=== PATIENT | male | born 1965 | race Caucasian/White ===

== ENCOUNTER 2016-08-16 14:50 | Emergency (ER) | payer BC, OTHER ==
[2016-08-16] MEDS ORDERED: diphenhydrAMINE HCl 25 MG CAP ONE (15:48)
[2016-08-16] MEDS ORDERED: Ondansetron ODT 4 MG TAB ONE (15:48)
[2016-08-16] MEDS ORDERED: Morphine Sulfate 2 MG/ML SYRINGE ONE (16:55)
--- NOTE | 2016-08-16 18:35 | RAD ---
RIGHT SHOULDER THREE VIEWS 08/16/16 HISTORY: Posttraumatic pain. FINDINGS: Chronic deformity of the right shoulder is noted with osseous remodeling of the humeral head. 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 No acute, displaced fra cture seen. IMPRESSION: Chronic deformity of the right shoulder. No discrete evidence of an acute fracture. POS: [facility]
== END 2016-08-16 17:13 | disposition home or self-care (01) ==
LOC: MADERS 14:50
DX: S46.911A Strain of unspecified muscle, fascia and tendon at shoulder and upper arm level, right arm, initial encounter (principal); I25.10 Atherosclerotic heart disease of native coronary artery without angina pectoris; E11.9 Type 2 diabetes mellitus without complications; E78.5 Hyperlipidemia, unspecified; E78.00 Pure hypercholesterolemia, unspecified; I10 Essential (primary) hypertension; F32.9 Major depressive disorder, single episode, unspecified; Z86.718 Personal history of other venous thrombosis and embolism; Z79.01 Long term (current) use of anticoagulants; Z79.899 Other long term (current) drug therapy; X58.XXXA Exposure to other specified factors, initial encounter
CPT/HCPCS: 96372; J2270; Q0162

== ENCOUNTER 2016-10-02 14:52 | Outpatient (CLI) | payer BC, OTHER ==
[2016-10-02 16:03] LABS: Anion Gap 14 mmol/L (10-20); BUN (Urea Nitrogen) 18 mg/dL (8.9-20.6); Calc. Creatinine Clearance 0 mL/min (70-130); Calcium 9.1 mg/dL (7.8-10.44); Carbon Dioxide 22 mmol/L (22-29); Chloride 107 mmol/L (98-107); Estimated GFR-MDRD 55; Glucose 104 mg/dL (70-105); Potassium 4.8 mmol/L (3.5-5.1); Sodium 138 mmol/L (136-145)
[2016-10-03 17:27] LABS: Creatinine, Urine 84.52 mg/dL (63-166)
== END 2016-10-02 14:53 | disposition home or self-care (01) ==
LOC: MADLAB 14:52
PROVIDERS: ATTEND Internal Medicine Nephrology
DX: N18.3 Chronic kidney disease, stage 3 (moderate) (principal); D50.9 Iron deficiency anemia, unspecified; R80.9 Proteinuria, unspecified; R53.82 Chronic fatigue, unspecified
CPT/HCPCS: 36415; 80048; 82570; 83970; 84156

== ENCOUNTER 2016-12-10 14:51 | Emergency (ER) | payer BC ==
[2016-12-10] MEDS ORDERED: Ondansetron ODT 4 MG TAB ONE (15:26)
--- NOTE | 2016-12-10 16:42 | RAD ---
RIGHT HIP 3 VIEWS: Date: 12/10/16 INDICATION: Post-traumatic pain. FINDINGS: Reference made to 04/14/13. There is no fracture or dislocation. No significant arthropathy. IMPRESSION: No acute osseous abnormality. POS: [facility]
--- NOTE | 2016-12-10 16:50 | CT ---
CT ABDOMEN AND PELVIS WITHOUT IV CONTRAST: Date: 12/10/16 HISTORY: Abdominal pain after being bucked off a horse two days ago. FINDINGS: Lack of intravenous contrast limits sensitivity for evaluation of the parenchymal organs. Patient's arms are also down by the side which results in artifact through the upper abdomen. There is a large increased density mass-like structure seen involving the posterior aspect inferior pole left kidney measuring 5.5 cm x 5.1 cm. There is also a rounded increased density lesion inferio r pole right kidney measuring 2.4 cm. While findings could be related to Bosniak Type II renal cysti c lesions, the lesion involving the left kidney is much larger than expected and renal mass is a pos sibility. Further evaluation with postcontrast CT abdomen is recommended. Visualized lung bases are clear without evidence of pleural effusion or pneumothorax. There is a rem ote lower posterior left rib fracture present. No acute fracture is seen. Degenerative changes are n oted of the lower lumbar spine. Vascular calcifications seen in coronary arteries, as well as involving the abdominal aorta and yoni c arteries. The liver, spleen, pancreas, and bilateral adrenal glands demonstrate a grossly normal nonenhanced C T appearance. Urinary bladder is decompressed. There is colonic diverticulosis. No free fluid or free intraperitoneal gas is seen in the abdomen or pelvis. There is a large increased density collection seen within the right gluteal region which measures 15 .4 cm x 4.7 cm in greatest axial dimensions. There is prominent subcutaneous edema also seen in the right gluteal subcutaneous soft tissues. There is no right hip fracture or dislocation appreciated. No obvious joint effusion is identified. IMPRESSION: 1. Increased density mass inferior pole left kidney with smaller increased density structure inferi or pole right kidney. CT scan of the abdomen with IV contrast is recommended for further evaluation. 2. Hematoma right gluteal subcutaneous soft tissues with adjacent prominent subcutaneous edema and subcutaneous fat right gluteal region. No underlying fracture is seen. 3. Colonic diverticulosis. 4. Limited evaluation of the parenchymal organs due to lack of intravenous contrast. CODE T. POS: [facility]
[2016-12-10] MEDS ORDERED: HYDROcodone/Acetaminophen 10/325 mg Tablet ONE (16:58)
== END 2016-12-10 17:25 | disposition home or self-care (01) ==
LOC: MADERS 14:51
DX: S70.01XA Contusion of right hip, initial encounter (principal); S30.0XXA Contusion of lower back and pelvis, initial encounter; I25.10 Atherosclerotic heart disease of native coronary artery without angina pectoris; E11.9 Type 2 diabetes mellitus without complications; I10 Essential (primary) hypertension; E78.5 Hyperlipidemia, unspecified; F32.9 Major depressive disorder, single episode, unspecified; Z86.718 Personal history of other venous thrombosis and embolism; Z79.84 Long term (current) use of oral hypoglycemic drugs; Z79.891 Long term (current) use of opiate analgesic; Z79.02 Long term (current) use of antithrombotics/antiplatelets; Z79.899 Other long term (current) drug therapy; V80.010A Animal-rider injured by fall from or being thrown from horse in noncollision accident, initial encounter; Y93.52 Activity, horseback riding
CPT/HCPCS: 74176; 96372; J2270; Q0162

== ENCOUNTER 2017-08-04 14:27 | Outpatient (CLI) | payer OTHER | END 2017-08-04 14:28 | disposition home or self-care (01) | LOC: MADLAB 14:27 | PROVIDERS: ATTEND Internal Medicine Nephrology | DX: N18.3 Chronic kidney disease, stage 3 (moderate) (principal) | CPT/HCPCS: 36415; 82565; 84520 ==

== ENCOUNTER 2017-09-02 22:36 | Emergency (ER) | payer OTHER ==
[2017-09-02] MEDS ORDERED: Sterile Water 10 ML ONE (23:12)
[2017-09-02] MEDS ORDERED: ALPRAZolam 0.25 MG TAB ONE (23:18)
== END 2017-09-02 23:30 | disposition home or self-care (01) ==
LOC: MADERS 22:36
DX: F41.1 Generalized anxiety disorder (principal); R33.9 Retention of urine, unspecified; I25.10 Atherosclerotic heart disease of native coronary artery without angina pectoris; E11.9 Type 2 diabetes mellitus without complications; E78.00 Pure hypercholesterolemia, unspecified; I10 Essential (primary) hypertension; Z86.718 Personal history of other venous thrombosis and embolism; Z79.899 Other long term (current) drug therapy
CPT/HCPCS: 51703; A4216

== ENCOUNTER 2018-02-04 14:20 | Outpatient (CLI) | payer OTHER ==
[2018-02-04 14:43] LABS: Bilirubin Negative (Negative); Blood, Urine Negative (Negative); Clarity Clear (Clear); Glucose, Urine (Dipstick) Negative (Negative); Leukocyte Negative (Negative); Nitrite Negative (Negative); Protein, Urine (Dipstick) > or equal to 300 mg/dL (Neg-Trace); Specific Gravity, Urine 1.025 (1.005-1.030); Urobilinogen 0.2 mg/dL (0.2-1.0); pH, Urine 6.5 (5.0-9.0)
[2018-02-04 14:45] LABS: #Basophils 0.1 thou/uL (0.0-0.2); #Eosinphils 0.1 thou/uL (0.0-0.7); #Lymphocytes 1.2 thou/uL (1.20-3.40); #Monocytes 0.5 thou/uL (0.11-0.59); %Basophils 1.6 % (0.0-1.0); %Eosinophils 1.7 % (0.0-10.0); %Lymphocytes 17.1 % (21.0-51.0); %Monocytes 7.6 % (0.0-10.0); Hemoglobin 14.3 g/dL (14.0-18.0); Mean Corpuscular HGB CONC 33.7 g/dL (32.0-36.0); Mean Corpuscular Hemoglobin 31.1 pg (27.0-31.0); Mean Corpuscular Volume 92.3 fL (78.0-98.0); Mean Platelet Volume 6.7 fL (7.4-10.4); Platelet Count 198 thou/uL (130-400); White Blood Cell (WBC) Count 6.9 thou/uL (4.8-10.8)
[2018-02-04 14:53] LABS: INR-International Normal Ratio 0.9; PTT 27.8 SEC (22.9-36.1); Prothrombin Time 12.5 SEC (12.0-14.7)
[2018-02-04 14:59] LABS: ALT (SGPT) 28 U/L (8-55); AST (SGOT) 20 U/L (5-34); Alkaline Phosphatase 55 U/L (40-150); Anion Gap 12 mmol/L (10-20); BUN (Urea Nitrogen) 18 mg/dL (8.4-25.7); Bilirubin, Total 0.5 mg/dL (0.2-1.2); Calc. Creatinine Clearance 0 mL/min (70-130); Calcium 9.1 mg/dL (7.8-10.44); Carbon Dioxide 22 mmol/L (22-29); Chloride 108 mmol/L (98-107); Estimated GFR-MDRD 48; Globulin 3.2 g/dL (2.4-3.5); Glucose 135 mg/dL (70-105); Potassium 4.3 mmol/L (3.5-5.1); Protein, Total 7.2 g/dL (6.0-8.3); Sodium 138 mmol/L (136-145)
[2018-02-04 15:17] LABS: Bacteria/HPF Rare-Few HPF (None Seen); RBC/HPF 0-3 HPF (0-3); Squamous Epithelial 0-3 HPF (0-3); WBC/HPF 0-3 HPF (0-3)
== END 2018-02-04 14:21 | disposition home or self-care (01) ==
LOC: MADLAB 14:20
PROVIDERS: ATTEND Urology
DX: N28.89 Other specified disorders of kidney and ureter (principal)
CPT/HCPCS: 36415; 80053; 81001; 85025; 85610; 85730; 87086

== ENCOUNTER 2018-03-17 16:22 | Emergency (ER) | payer OTHER ==
[2018-03-17 17:11] LABS: #Basophils 0.1 thou/uL (0.0-0.2); #Eosinphils 0.1 thou/uL (0.0-0.7); #Lymphocytes 1.2 thou/uL (1.20-3.40); #Monocytes 0.7 thou/uL (0.11-0.59); #Neutrophils 6.5 thou/uL (1.40-6.50); %Basophils 1.6 % (0.0-1.0); %Eosinophils 0.6 % (0.0-10.0); %Lymphocytes 13.9 % (21.0-51.0); %Monocytes 8.2 % (0.0-10.0); %Neutrophils 75.6 % (42.0-75.0); Hemoglobin 11.9 g/dL (14.0-18.0); Mean Corpuscular HGB CONC 32.9 g/dL (32.0-36.0); Mean Corpuscular Volume 91.2 fL (78.0-98.0); Platelet Count 343 thou/uL (130-400); RBC Distribution Width 12.8 % (11.5-14.5); Red Blood Cell (RBC) Count 3.98 mill/uL (4.70-6.10); White Blood Cell (WBC) Count 8.6 thou/uL (4.8-10.8)
[2018-03-17 17:26] LABS: ALT (SGPT) 15 U/L (8-55); AST (SGOT) 14 U/L (5-34); Albumin 3.9 g/dL (3.5-5.0); Alkaline Phosphatase 77 U/L (40-150); Anion Gap 16 mmol/L (10-20); BUN (Urea Nitrogen) 27 mg/dL (8.4-25.7); Bilirubin, Total 0.5 mg/dL (0.2-1.2); Calc. Creatinine Clearance 0 mL/min (70-130); Calcium 9.1 mg/dL (7.8-10.44); Carbon Dioxide 19 mmol/L (22-29); Chloride 106 mmol/L (98-107); Estimated GFR-MDRD 38; Globulin 2.7 g/dL (2.4-3.5); Glucose 195 mg/dL (70-105); Protein, Total 6.6 g/dL (6.0-8.3); Sodium 137 mmol/L (136-145)
[2018-03-17 17:27] LABS: CKMB 0.6 ng/mL (0-6.6); Troponin I Less than 0.010 ng/mL (< 0.028)
[2018-03-17] MEDS ORDERED: Sodium Chloride 0.9% 1,000 ML BAG ONE (23:34)
== END 2018-03-17 18:27 | disposition home or self-care (01) ==
LOC: MADERS 16:22
DX: R53.1 Weakness (principal); I25.10 Atherosclerotic heart disease of native coronary artery without angina pectoris; E11.9 Type 2 diabetes mellitus without complications; E78.5 Hyperlipidemia, unspecified; I10 Essential (primary) hypertension; Z86.718 Personal history of other venous thrombosis and embolism; F41.9 Anxiety disorder, unspecified; F32.9 Major depressive disorder, single episode, unspecified; Z79.899 Other long term (current) drug therapy
CPT/HCPCS: 80053; 82553; 84484; 85025; 93005; 94760; 96360; J7050

== ENCOUNTER 2019-02-08 21:11 | Emergency (ER) | payer OTHER ==
--- NOTE | 2019-02-08 23:00 | RAD ---
Radiograph left hip 2 views: HISTORY: 54-year-old male with left hip pain FINDINGS: Femoral head contour is maintained. No subcapital osteophytes. Hip joint space is maintained. No frac ture or dislocation. IMPRESSION: Negative
== END 2019-02-08 22:56 | disposition home or self-care (01) ==
LOC: MADERS 21:11
DX: M70.62 Trochanteric bursitis, left hip (principal); I25.10 Atherosclerotic heart disease of native coronary artery without angina pectoris; Z95.5 Presence of coronary angioplasty implant and graft; E11.9 Type 2 diabetes mellitus without complications; E78.5 Hyperlipidemia, unspecified; E78.00 Pure hypercholesterolemia, unspecified; I10 Essential (primary) hypertension; Z85.528 Personal history of other malignant neoplasm of kidney; Z86.718 Personal history of other venous thrombosis and embolism; F41.9 Anxiety disorder, unspecified; F32.9 Major depressive disorder, single episode, unspecified; Z79.899 Other long term (current) drug therapy; Z79.01 Long term (current) use of anticoagulants

== ENCOUNTER 2019-11-18 14:53 | Outpatient (CLI) | payer OTHER ==
--- NOTE | 2019-11-18 15:10 | RAD ---
Exam:Left shoulder 3 views HISTORY: Chronic pain. Patient fell off a horse. COMPARISON: None FINDINGS: Glenohumeral joint space is preserved. No fracture or dislocation. Visualized left ribs and lung parenchyma do not demonstrate posttraumatic change. IMPRESSION: No fracture or dislocation.
== END 2019-11-18 14:54 | disposition home or self-care (01) ==
LOC: MADRAD 14:53
PROVIDERS: ATTEND Orthopaedic Surgery
DX: M25.512 Pain in left shoulder (principal)

== ENCOUNTER 2020-03-30 13:50 | Outpatient (CLI) | payer OTHER ==
[2020-03-30 14:08] LABS: #Basophils 0.1 thou/uL (0.0-0.2); #Eosinphils 0.1 thou/uL (0.0-0.7); #Neutrophils 8.2 thou/uL (1.40-6.50); %Basophils 1.1 % (0.0-1.0); %Eosinophils 0.9 % (0.0-10.0); %Monocytes 9.2 % (0.0-10.0); %Neutrophils 78.7 % (42.0-75.0); Hemoglobin 13.2 g/dL (14.0-18.0); Mean Corpuscular Volume 93.8 fL (78.0-98.0); Mean Platelet Volume 5.7 fL (7.4-10.4); Platelet Count 210 thou/uL (130-400); RBC Distribution Width 12.6 % (11.5-14.5); White Blood Cell (WBC) Count 10.4 thou/uL (4.8-10.8)
[2020-03-30 14:22] LABS: ALT (SGPT) 29 U/L (8-55); AST (SGOT) 27 U/L (5-34); Albumin 3.9 g/dL (3.5-5.0); Alkaline Phosphatase 63 U/L (40-110); Anion Gap 15 mmol/L (10-20); BUN (Urea Nitrogen) 26 mg/dL (8.4-25.7); Bilirubin, Total 0.4 mg/dL (0.2-1.2); Calc. Creatinine Clearance 0 mL/min (70-130); Calcium 8.9 mg/dL (7.8-10.44); Carbon Dioxide 21 mmol/L (22-29); Cardiac Risk 3.2 (Less than 4.5); Chloride 104 mmol/L (98-107); Cholesterol 130 mg/dl (< 200 Desired); Estimated GFR-MDRD 45; Glucose 112 mg/dL (70-105); HDL Cholesterol 41 mg/dL (>60 Neg Risk); LDL Cholesterol, Calculated 64 mg/dL; Potassium 4.1 mmol/L (3.5-5.1); Protein, Total 6.9 g/dL (6.0-8.3); Sodium 136 mmol/L (136-145); Triglycerides 126 mg/dL (Less than 150)
[2020-03-30 21:44] LABS: Hemoglobin A1c 5.7 % (4.0-6.0)
== END 2020-03-30 13:51 | disposition home or self-care (01) ==
LOC: MADLAB 13:50
PROVIDERS: ATTEND Physician Assistant Medical
DX: Z51.81 Encounter for therapeutic drug level monitoring (principal); I12.9 Hypertensive chronic kidney disease with stage 1 through stage 4 chronic kidney disease, or unspecified chronic kidney disease; E11.22 Type 2 diabetes mellitus with diabetic chronic kidney disease; N18.30 Chronic kidney disease, stage 3 unspecified; E11.21 Type 2 diabetes mellitus with diabetic nephropathy; E78.2 Mixed hyperlipidemia; Z79.899 Other long term (current) drug therapy
CPT/HCPCS: 36415; 80053; 80061; 83036; 85025

== ENCOUNTER 2020-09-04 18:18 | Emergency (ER) | payer OTHER ==
[2020-09-04] MEDS ORDERED: Morphine 4 MG/ML VIAL ONE (19:51)
[2020-09-04] MEDS ORDERED: Morphine 2 MG/ML VIAL ONE (19:51)
[2020-09-04 20:08] LABS: ALT (SGPT) 29 U/L (8-55); AST (SGOT) 26 U/L (5-34); Albumin 3.5 g/dL (3.5-5.0); Alkaline Phosphatase 58 U/L (40-110); Anion Gap 16 mmol/L (10-20); BUN (Urea Nitrogen) 25 mg/dL (8.4-25.7); Bilirubin, Total 0.3 mg/dL (0.2-1.2); Calc. Creatinine Clearance 0 mL/min (70-130); Calcium 8.5 mg/dL (7.8-10.44); Carbon Dioxide 23 mmol/L (22-29); Chloride 102 mmol/L (98-107); Globulin 3.2 g/dL (2.4-3.5); Glucose 86 mg/dL (70-105); Protein, Total 6.7 g/dL (6.0-8.3); Sodium 137 mmol/L (136-145)
[2020-09-04 20:30] LABS: Band 4 % (5-11); Hemoglobin 14.2 g/dL (14.0-18.0); Lymphocytes 20 % (21-51); MDiff Complete? YES; Mean Corpuscular HGB CONC 31.2 g/dL (32.0-36.0); Mean Corpuscular Hemoglobin 29.1 pg (27.0-31.0); Mean Corpuscular Volume 93.5 fL (78.0-98.0); Mean Platelet Volume 7.9 fL (7.4-10.4); Monocytes 8 % (0-10); Neutrophil 68 % (42-75); Platelet Count 180 thou/uL (130-400); Platelet Morphology Comment Appears Adequate; RBC Distribution Width 14.5 % (11.5-14.5); RBC Morphology Normal; Red Blood Cell (RBC) Count 4.87 mill/uL (4.70-6.10); White Blood Cell (WBC) Count 5.9 thou/uL (4.8-10.8)
[2020-09-05 19:11] LABS: SARS-CoV-2 PCR by NAA DETECTED (NotDetected)
== END 2020-09-04 20:39 | disposition home or self-care (01) ==
LOC: MADERS 18:18
DX: U07.1 COVID-19 (principal); I25.10 Atherosclerotic heart disease of native coronary artery without angina pectoris; E11.9 Type 2 diabetes mellitus without complications; E78.5 Hyperlipidemia, unspecified; E78.00 Pure hypercholesterolemia, unspecified; I10 Essential (primary) hypertension; Z85.528 Personal history of other malignant neoplasm of kidney; Z86.73 Personal history of transient ischemic attack (TIA), and cerebral infarction without residual deficits; Z79.899 Other long term (current) drug therapy; Z79.01 Long term (current) use of anticoagulants
CPT/HCPCS: 36415; 71045; 80053; 83605; 83880; 84484; 85025; 87635; 96372; J2270; U0003; U0005

== ENCOUNTER 2021-08-31 15:19 | Emergency (ER) | payer SELFPAY ==
[2021-08-31 16:17] LABS: #Basophils 0.1 thou/uL (0.0-0.2); #Monocytes 0.6 thou/uL (0.11-0.59); %Basophils 0.9 % (0.0-1.0); %Eosinophils 0.6 % (0.0-10.0); %Lymphocytes 12.7 % (21.0-51.0); %Monocytes 7.9 % (0.0-10.0); Hemoglobin 14.5 g/dL (14.0-18.0); Mean Corpuscular HGB CONC 32.4 g/dL (32.0-36.0); Mean Corpuscular Hemoglobin 30.5 pg (27.0-31.0); Mean Corpuscular Volume 94.1 fL (78.0-98.0); Mean Platelet Volume 6.8 fL (7.4-10.4); Platelet Count 229 thou/uL (130-400); RBC Distribution Width 13.9 % (11.5-14.5); Red Blood Cell (RBC) Count 4.75 mill/uL (4.70-6.10); White Blood Cell (WBC) Count 7.7 thou/uL (4.8-10.8)
[2021-08-31] MEDS ORDERED: Sodium Chloride 0.9% 1,000 ML ONE (16:18)
[2021-08-31] MEDS ORDERED: Acetaminophen 500 MG TAB ONE (17:19)
[2021-08-31 17:20] LABS: Bilirubin Negative (Negative); Blood, Urine Negative (Negative); Clarity Clear (Clear); Glucose, Urine (Dipstick) Negative (Negative); Ketone, Urine Negative (Negative); Leukocyte Negative (Negative); Nitrite Negative (Negative); Protein, Urine (Dipstick) 100 mg/dL (Neg-Trace); Urobilinogen 0.2 mg/dL (Less than 2); pH, Urine 6.5 (5.0-9.0)
[2021-08-31 17:28] LABS: Bacteria/HPF Rare-Few HPF (None Seen); RBC/HPF None Seen HPF (0-3); Renal Epithelial None Seen HPF (None Seen); Squamous Epithelial 0-3 HPF (0-3); WBC/HPF None Seen HPF (0-3)
[2021-08-31] MEDS ORDERED: ALPRAZolam 0.5 MG TAB ONE (18:08)
== END 2021-08-31 18:30 | disposition home or self-care (01) ==
LOC: MADERS 15:19
DX: E86.9 Volume depletion, unspecified (principal); R39.11 Hesitancy of micturition; I10 Essential (primary) hypertension; I25.10 Atherosclerotic heart disease of native coronary artery without angina pectoris; E11.9 Type 2 diabetes mellitus without complications; E78.5 Hyperlipidemia, unspecified; E78.00 Pure hypercholesterolemia, unspecified; Z86.718 Personal history of other venous thrombosis and embolism; Z85.528 Personal history of other malignant neoplasm of kidney; Z95.5 Presence of coronary angioplasty implant and graft; Z79.899 Other long term (current) drug therapy
CPT/HCPCS: 51702; 81003; 81015; 82550; 85025; J7050

== ENCOUNTER 2024-05-04 23:09 | Emergency (ER) | payer BC ==
[2024-05-04] MEDS ORDERED: hydrOXYzine 25 MG TAB ONE (23:32)
[2024-05-04] MEDS ORDERED: BuPROPion XL 150 MG ER.TAB PO SCH (23:45)
== END 2024-05-04 23:54 | disposition home or self-care (01) ==
LOC: MADERS 23:09
DX: Z76.0 Encounter for issue of repeat prescription (principal); E11.9 Type 2 diabetes mellitus without complications; I10 Essential (primary) hypertension; E78.00 Pure hypercholesterolemia, unspecified; I25.10 Atherosclerotic heart disease of native coronary artery without angina pectoris; Z95.0 Presence of cardiac pacemaker; Z79.899 Other long term (current) drug therapy
CPT/HCPCS: 99281

== ENCOUNTER 2025-03-24 14:07 | Outpatient (CLI) | payer BC ==
[2025-03-24 14:38] LABS: Cocaine Metabolite Screen Negative (Negative); THC/Cannabinoid Screen PRELIM POSITIVE (Negative); Tricyclic Screen Negative (Negative)
== END 2025-03-24 14:08 | disposition home or self-care (01) ==
LOC: MADLAB 14:07
PROVIDERS: ATTEND Family Medicine
DX: Z51.81 Encounter for therapeutic drug level monitoring (principal); Z79.899 Other long term (current) drug therapy
CPT/HCPCS: 80306

== ENCOUNTER 2025-04-19 18:54 | Emergency (ER) | payer BC ==
[2025-04-19 19:39] LABS: Bacteria/HPF Rare-Few HPF (None Seen); CAUTI Indications for Culture Dysuria,urgency,freq; Glucose, Urine (Dipstick) Negative (Negative); Leukocyte Negative (Negative); Protein, Urine (Dipstick) 100 mg/dL (Neg-Trace); RBC/HPF 0-3 HPF (0-3); Specific Gravity, Urine 1.020 (1.005-1.030); Urine Culture Reflex No No; WBC/HPF 0-3 HPF (0-3)
== END 2025-04-19 20:05 | disposition home or self-care (01) ==
LOC: MADERS 18:54
DX: N40.1 Benign prostatic hyperplasia with lower urinary tract symptoms (principal); R33.8 Other retention of urine; I10 Essential (primary) hypertension; I25.10 Atherosclerotic heart disease of native coronary artery without angina pectoris; E11.9 Type 2 diabetes mellitus without complications; E78.5 Hyperlipidemia, unspecified; Z79.899 Other long term (current) drug therapy
CPT/HCPCS: 51702; 81001; 99283

== ENCOUNTER 2025-04-20 13:49 | Emergency (ER) | payer BC ==
[2025-04-20] MEDS ORDERED: predniSONE 20 MG TAB ONE (15:22)
[2025-04-20] MEDS ORDERED: Water For Inject, Bacteriostat 0 ML ONE (15:38)
== END 2025-04-20 15:39 | disposition home or self-care (01) ==
LOC: MADERS 13:49
DX: R33.9 Retention of urine, unspecified (principal); M70.71 Other bursitis of hip, right hip; I25.10 Atherosclerotic heart disease of native coronary artery without angina pectoris; E11.9 Type 2 diabetes mellitus without complications; Z95.5 Presence of coronary angioplasty implant and graft
CPT/HCPCS: 51702; 99283; J7512